=== PATIENT | male | born 1995 | race Caucasian/White ===

== ENCOUNTER → 2024-01-21 | Outpatient (CLI) | payer OTHER, SELFPAY ==
--- NOTE | 2024-01-21 | CYSPIN_PTH ---
PATIENT: JESSICA KIRKPATRICK LOC: [facility] U#:[id number] AGE/SX: 28/M ROOM: RE01/21/[address]: Dr. Antoine Mooney II, MD : 1995 BED: DIS: 01/21/2024 SPEC #: [id number] RECD: 01/21/24 10:54 STATUS: GENE COATS #: [id number] JUAN RAMON: 01/21/24 00:[address]: Antoine Mooney II DEPT: CYTOLOGY RECD BY: Elvira Nieto Tissues: Cytologic material, NOS Procedures: Pap Stain (control) Special Stain Group II Cytospin Fluid HEADER OPERATION: Post vasectomy PRE-OP DIAGNOSIS: Post vasectomy status TISSUE SUBMITTED: Seminal fluid for cytology DIAGNOSIS CYTOLOGY Seminal fluid for cytology (cytospins): Numerous spermatozoa are present. AM/mr 01/21/24 CYTOLOGY STUDY Slides are reviewed. CYTOLOGY GROSS Received is 10 ml of cloudy- opaque fluid labeled with the patient's name and and designated per the requisition as Seminal fluid. Submitted for cytology preparation. mr 01/21/24 TC:5 CPT: 55242
[2024-01-21 09:40] LABS: Cytology, Semen SEE PATHOLOGY REPORT
== END | disposition home or self-care (01) ==
LOC: LAB 09:08
PROVIDERS: PCP Urology; Referring Provider Urology; Visit Provider Urology
DX: Z30.8 Encounter for other contraceptive management (principal)
CPT/HCPCS: 88108; 88313

== ENCOUNTER → 2024-02-28 | Outpatient (CLI) | payer OTHER, SELFPAY ==
--- NOTE | 2024-02-28 | CYSPIN_PTH ---
PATIENT: JESSICA KIRKPATRICK LOC: [facility] U#:[id number] AGE/SX: 28/M ROOM: RE02/28/[address]: Dr. Antoine Mooney II, MD : 1995 BED: DIS: 02/28/2024 SPEC #: [id number] RECD: 02/28/24 08:59 STATUS: GENE COATS #: [id number] JUAN RAMON: 02/28/24 00:[address]: Antoine Mooney II DEPT: CYTOLOGY RECD BY: Ava Mendiola Tissues: Cytologic material, NOS Procedures: Pap Stain (control) Special Stain Group II Cytospin Fluid HEADER OPERATION: Post vasectomy PRE-OP DIAGNOSIS: Post vasectomy status TISSUE SUBMITTED: Seminal fluid DIAGNOSIS CYTOLOGY Seminal fluid for cytology (cytospin): Spermatozoa are present. TANIA/mr 02/28/24 CYTOLOGY STUDY Slides are reviewed. CYTOLOGY GROSS Received is 10 ml of opaque viscous fluid labeled with the patient's name and and designated per the requisition as Seminal fluid. Submitted for cytology preparation including cell block. Mr 02/28/24 TC:5 CPT: 55131
[2024-02-28 08:43] LABS: Cytology, Semen SEE PATHOLOGY REPORT
== END | disposition home or self-care (01) ==
PROVIDERS: PCP Urology; Referring Provider Urology; Visit Provider Urology
DX: Z30.8 Encounter for other contraceptive management (principal)
CPT/HCPCS: 88108; 88313